=== PATIENT | female | born 1985 | race Caucasian/White ===

== ENCOUNTER 2017-01-09 14:07 | Emergency (ER) | payer MEDICAID ==
[~2017-01-09] VITALS: Ht 165.1 cm; Wt 100.0 kg
[2017-01-09 14:30] VITALS: BP 136/84
== END 2017-01-09 17:05 | disposition left against medical advice (07) ==
LOC: ER 14:07
DX: Z53.21 Procedure and treatment not carried out due to patient leaving prior to being seen by health care provider (principal)

== ENCOUNTER 2018-05-04 01:31 | Emergency (ER) | payer MEDICAID | END 2018-05-04 03:59 | disposition left against medical advice (07) | LOC: ER 01:31 | DX: R06.02 Shortness of breath (principal); M54.5 Low back pain; Z53.21 Procedure and treatment not carried out due to patient leaving prior to being seen by health care provider ==

== ENCOUNTER 2020-07-11 03:18 | Emergency (ER) | payer MEDICAID ==
[~2020-07-11] VITALS: Ht 165.1 cm; Wt 78.0 kg
[2020-07-11] MEDS ORDERED: KETOROLAC 60MG/2ML VIAL IM STA (04:20)
[2020-07-11] MEDS ORDERED: ACETAMINOPHEN 500MG TABLET PO ONE (04:45)
[2020-07-11 04:56] LABS: HEMATOCRIT. 41.5 % (36.0-48.0); HEMOGLOBIN. 14.1 g/dL (12.0-16.0); MEAN CORPUSCULAR VOLUME 85.6 fL (81.0-99.0); MEAN PLATELET VOLUME 8.5 fl (7.4-10.4); PLATELET 305 x1000/uL (130-400); RED BLOOD CELL COUNT 4.85 mill/uL (4.2-5.4)
[2020-07-11 05:02] LABS: CHLORIDE 105 mEq/L (98-107)
[2020-07-11 05:06] LABS: ETHANOL BLOOD < 10 mg/dL
[2020-07-11 05:14] LABS: CLARITY URINE TURBID (CLEAR); COLOR URINE ORANGE (YELLOW); KETONES URINE TRACE (NEGATIVE); LEUKOCYTE ESTERASE URINE 2+ (NEGATIVE); NITRITE URINE POSITIVE (NEGATIVE); OCCULT BLOOD URINE 2+ (NEGATIVE); PH URINE 5.5 (4.5-8.0); PROTEIN URINE 2+ (NEGATIVE); SPECIFIC GRAVITY URINE 1.034 (1.005-1.030)
[2020-07-11] MEDS ORDERED: IOHEXOL-300 100 ML BOTTLE ONE (05:22)
[2020-07-11 05:29] LABS: *BARBITURATES SCREEN URINE NEGATIVE (NEGATIVE); *BENZODIAZEPINES SCREEN URINE NEGATIVE (NEGATIVE); *COCAINE SCREEN URINE NEGATIVE (NEGATIVE); CANNABINOID URINE SCREEN NEGATIVE (NEGATIVE); METHADONE URINE SCREEN NEGATIVE (NEGATIVE); OPIATES URINE SCREEN NEGATIVE (NEGATIVE); PHENCYCLIDINE URINE SCREEN NEGATIVE (NEGATIVE)
[2020-07-11 05:36] LABS: PLATELET ESTIMATE NORMAL
[2020-07-11 05:45] LABS: *AMPHETAMINES SCREEN URINE PRESUMTIVE POSITIVE (NEGATIVE)
[2020-07-11 07:32] VITALS: BP 123/70
[2020-07-11] MEDS ORDERED: CEFTRIAXONE 1 G PREMIX 50 ML IV ONE (07:45)
[2020-07-11] MEDS ORDERED: CIPR500T5 MT (08:21)
== END 2020-07-11 08:38 | disposition left against medical advice (07) ==
LOC: ER 03:18 → CANBEDREQ 13:39
DX: T83.9XXA Unspecified complication of genitourinary prosthetic device, implant and graft, initial encounter (principal); N39.0 Urinary tract infection, site not specified; Y83.8 Other surgical procedures as the cause of abnormal reaction of the patient, or of later complication, without mention of misadventure at the time of the procedure; Y92.9 Unspecified place or not applicable
CPT/HCPCS: 36415; 74176; 76830; 76856; 80053; 80305; 80320; 81003; 81025; 83690; 85025; 87086; 93005; 99285; J1885; Q9967; G0480